=== PATIENT | female | born 1955 | race Caucasian/White ===

== ENCOUNTER 2017-08-27 08:13 | Emergency (ER) | payer OTHER ==
[~2017-08-27] VITALS: Ht 152.4 cm; Wt 68.2 kg
[~2017-08-27 08:13] MED LIST: ALPR-475 PO; HYDR1TAB12 PO; TELM40TA PO; VICODIN PO; [UNRECOGNIZED DRUG - REMARK] PO
[2017-08-27 08:20] VITALS: BP 147/90
== END 2017-08-27 11:05 | disposition home or self-care (01) ==
LOC: ED 10:44
DX: S93.622A Sprain of tarsometatarsal ligament of left foot, initial encounter (principal); Z85.3 Personal history of malignant neoplasm of breast; W01.0XXA Fall on same level from slipping, tripping and stumbling without subsequent striking against object, initial encounter; Y93.89 Activity, other specified; Y92.89 Other specified places as the place of occurrence of the external cause; Y99.9 Unspecified external cause status
CPT/HCPCS: 99284